=== PATIENT | male | born 1945 | race Caucasian/White ===

== ENCOUNTER 2022-05-05 16:26 | Emergency (ER) | payer OTHER | END 2022-05-05 17:23 | disposition home or self-care (01) | LOC: NAV ERS 16:26 | DX: S60.222A Contusion of left hand, initial encounter (principal); K21.9 Gastro-esophageal reflux disease without esophagitis; I10 Essential (primary) hypertension ==

== ENCOUNTER 2023-04-10 10:53 | Emergency (ER) | payer OTHER ==
[2023-04-10] MEDS ORDERED: Ketorolac Tromethamine 30 MG/ML VIAL ONE (11:41)
== END 2023-04-10 11:45 | disposition home or self-care (01) ==
LOC: NAV ERS 10:53
DX: S80.01XA Contusion of right knee, initial encounter (principal); M25.551 Pain in right hip; I10 Essential (primary) hypertension; G62.9 Polyneuropathy, unspecified; M19.90 Unspecified osteoarthritis, unspecified site; B20 Human immunodeficiency virus [HIV] disease; W18.30XA Fall on same level, unspecified, initial encounter; Z79.899 Other long term (current) drug therapy
CPT/HCPCS: 96372; J1885